=== PATIENT | male | born 1970 | race Caucasian/White ===

== ENCOUNTER 2016-04-18 08:26 | Outpatient (CLI) | payer BC ==
[2016-04-28] MEDS ORDERED: ACYCLOVIR400 MG PO (16:24)
[2016-04-28] MEDS ORDERED: LISINOPRIL/HYDR1 TAB (16:25)
[2016-04-28] MEDS ORDERED: NITROSTAT0.4 MG SL (16:26)
== END 2016-04-18 23:00 ==
LOC: LAB SRH 08:26
DX: R19.7 Diarrhea, unspecified (principal); K62.5 Hemorrhage of anus and rectum
CPT/HCPCS: 90124

== ENCOUNTER 2016-04-19 10:38 | Outpatient (CLI) | payer BC ==
[2016-04-28] MEDS ORDERED: ACYCLOVIR400 MG PO (16:24)
[2016-04-28] MEDS ORDERED: LISINOPRIL/HYDR1 TAB (16:25)
[2016-04-28] MEDS ORDERED: NITROSTAT0.4 MG SL (16:26)
== END 2016-04-19 23:00 ==
LOC: LAB SRH 10:38
DX: R19.7 Diarrhea, unspecified (principal); K62.5 Hemorrhage of anus and rectum
CPT/HCPCS: 90112; 90124; 90455; 99784

== ENCOUNTER 2016-05-01 06:49 | Day surgery (SDC) | payer BC ==
[~2016-05-01] VITALS: Ht 195.6 cm; Wt 107.6 kg
[~2016-05-01 06:49] MED LIST: ACYCLOVIR400 MG PO; LISINOPRIL/HYDR1 TAB; NITROSTAT0.4 MG SL
--- NOTE | 2016-05-01 09:47 | Provider's Discharge Care Plan ---
Problem, Goal, Plan Problem List 1. Colon polyp 2. Diverticulosis
--- NOTE | 2016-05-01 09:47 | Provider's Discharge Care Plan ---
Problem, Goal, Plan Problem List 1. Colon polyp 2. Diverticulosis
--- NOTE | 2016-05-01 10:23 | OPERATIVE REPORT ---
DATE OF SURGERY: 05/01/2016 SURGEON: Raheem Palomares MD PREOPERATIVE DIAGNOSES: 1. History of colon polyps 2. Epigastric pain. 3. Diarrhea POSTOPERATIVE DIAGNOSES: 1. Colon polyps 2. Minimal colonic erythema 3. Hiatal hernia. 4. Upper gastric ulcer PROCEDURE PERFORMED: 1. Colonoscopy with forceps polypectomy and biopsy 2. Esophagogastroduodenoscopy with biopsies ANESTHESIA: Total IV general. INDICATIONS: The patient is a 46-year-old man with episodic painless rectal bleeding and diarrhea. His daughter apparently was reported to have parasites; however, the patient's studies prior to surgery were negative. He previously had a number of hyperplastic polyps as well as a single adenomatous polyp removed. SURGICAL TECHNIQUE: The patient was taken to the endoscopy suite, where total IV general was administered and the patient was placed in the left lateral decubitus position. The anus demonstrated no palpable abnormalities in the anal canal. The colonoscope was advanced the length colon under direct vision. There was a small patch of erythema seen at about 20 cm, but no obvious ulceration or no true inflammatory bowel disease. On withdrawal, there were 2 small polyps about 2 mm in diameter which were removed with the biopsy forceps noted at 70 cm and 35 cm. At the 20 cm area of erythema, several biopsies were taken. A retroflexed view was unremarkable. There was a diverticulum in the cecum just parallel to the ileocecal valve. The upper GI endoscope was introduced into the stomach and duodenum. There was a small sliding hiatal hernia and a minimal Schatzki ring. The duodenum was normal. The gastric antrum was normal. On retroflexed view, there was a small erythematous shallow ulcer near the GE junction. Biopsy was obtained from this to help characterize its nature, though the appearance was pretty nonspecific. This may very well be a pill ulcer. A single biopsy was taken from the antrum also to test for Helicobacter. The remainder of the esophagus was normal. There was no sign of Valdovinos's change. The patient left in good condition.
[2016-05-01 11:06] VITALS: BP 155/92
== END 2016-05-01 11:24 | disposition home or self-care (01) ==
LOC: SDC SRH 06:49 → SCU SRH 06:49 → SDC SRH 08:30 → OR SRH 08:30 → SDC SRH 11:24
PROVIDERS: Surgery
PROC: 0DB48ZX Excision of Esophagogastric Junction, Via Natural or Artificial Opening Endoscopic, Diagnostic (ICD-10-PCS; principal; 2016-05-01 08:30)
PROC: 0DBM8ZX Excision of Descending Colon, Via Natural or Artificial Opening Endoscopic, Diagnostic (ICD-10-PCS; principal; 2016-05-01 08:30)
PROC: 0DBN8ZX Excision of Sigmoid Colon, Via Natural or Artificial Opening Endoscopic, Diagnostic (ICD-10-PCS; principal; 2016-05-01 08:30)
PROC: 0DB68ZX Excision of Stomach, Via Natural or Artificial Opening Endoscopic, Diagnostic (ICD-10-PCS; principal; 2016-05-01 08:30)
DX: D12.4 Benign neoplasm of descending colon (principal); D12.5 Benign neoplasm of sigmoid colon; K25.9 Gastric ulcer, unspecified as acute or chronic, without hemorrhage or perforation; K44.9 Diaphragmatic hernia without obstruction or gangrene; I10 Essential (primary) hypertension
CPT/HCPCS: 29229; 29240; 50004; 60001; 82943; 82944; 83526; 90705